=== PATIENT | male | born 1940 | race Caucasian/White ===

== ENCOUNTER 2019-01-14 08:44 | Emergency (ER) | payer MEDICARE, OTHER, SELFPAY ==
[2019-01-14 08:47] VITALS: BP 174/104; PULSE 68; RESP 22; TEMP 35.8; O2SAT 94; BMI 32.0
--- NOTE | 2019-01-14 08:50 | ED.EPISTAXIS ---
HPI - Epistaxis General Chief complaint: Nasal Problem Stated complaint: Nose bleed for about an hr. Time Seen by Provider: 01/14/19 08:50 Source: patient Mode of arrival: ambulatory Limitations: no limitations History of Present Illness HPI Narrative: Patient is a 78-year-old male who presents with epistaxis from the left side is ongoing for last hour and a half. He says he thinks he got it to stop on the way over here. He says that he swallowed a lot of blood coughed up some blood clots. He has pinching his nose now the overall seems like the bleeding has stopped. Speaking without any difficulty it is not running down his throat. He does take aspirin daily. MD complaint: epistaxis Location: left nostril Context: history of previous and aspirin use Treatment prior to arrival: nose pinching Related Data Allergies Allergy/AdvReac Type Severity Reaction Status Date / Time No Known Drug Allergies Allergy Verified 01/14/19 09:07 Review of Systems Review of Systems GENERAL: Denies chills,fever HEENT: See HPI RESPIRATORY: Denies dyspnea, cough, wheezing CARDIOVASCULAR: Denies chest pain, palpitations GASTROINTESTINAL: Denies nausea, vomiting MUSCULOSKELETAL: Denies extremity pain, injury SKIN: No rash, no laceration, no pruritus NEUROLOGIC: Denies weakness, dizziness, headache, numbness 8 point review of systems is negative except for those stated above and HPI [facility] Medical History Hyperlipidemia (Acute) Hypertension (Acute) Hypothyroid (Acute) Social History Smoking Status: Never smoker Social History Smoking Status: Never smoker Exam Initial Vital Signs Initial Vital Signs: Vital Signs Temperature 96.5 F L 01/14/19 08:47 Pulse Rate 68 01/14/19 08:47 Respiratory Rate 22 01/14/19 08:47 Blood Pressure 174/104 H 01/14/19 08:47 Pulse Oximetry 94 01/14/19 08:47 GENERAL: Well-appearing, well-nourished and in no acute distress. HEENT: Head atraumatic,EOMI, pupils reactive, face symmetric, moist mucous membranes NOSE: No active bleeding seen in the left naris. Blood clot noted PHARYNX: No blood in it. CARDIOVASCULAR: Regular rate and rhythm without murmurs, rubs or gallops. RESPIRATORY: Breath sounds equal bilaterally, no wheezes rales or rhonchi. ABDOMEN: Soft, nontender. Normoactive bowel sounds all 4 quadrants. No guarding or rebound. EXTREMITIES: Normal range of motion, no clubbing or edema. Neurovascularly intact NEUROLOGICAL: Alert and oriented x4.Normal gait and speech. SKIN: Warm, dry, no laceration, no petechiae, no rashes or lesions. Course Vital Signs - 8 hr 01/14/19 08:47 01/14/19 09:26 Temperature 96.5 F L Pulse Rate 68 60 Respiratory Rate 22 18 Blood Pressure 174/104 H Blood Pressure [Left Arm] 133/80 Pulse Oximetry 94 96 MDM - Epistaxis MDM Narrative Medical decision making narrative: Bleeding basically stopped prior to arrival. Nasal clamp was placed and left on for about 20 more minutes. Bleeding completely stopped. Patient never had any airway compromise no dripping of blood. Education had a use clamping when to return to the ED. Patient states he takes aspirin every other day he is going to return to that he thinks he has extra sensitive to it. Discharge Plan Departure Patient Disposition: Home Clinical Impression: Epistaxis Instructions: DI for Nosebleed Activity Restrictions/Additional Instructions: *You have been diagnosed with epistaxis *What to do: Recommend humidifier, use a nose clamp in tilted forward if bleeding should reoccur *Continue to take medications as directed *Follow up with your primary care provider in 2-3 days *Return to ER if you should have persistent nose bleed on going for more than 60 minutes despite clamping, significant blood in her or any new, worsening or concerning symptoms
[2019-01-14 09:26] VITALS: BP 133/80; PULSE 60; RESP 18; O2SAT 96
== END 2019-01-14 09:38 | disposition home or self-care (01) ==
PROVIDERS: Emergency Provider Emergency Medicine
DX: R04.0 Epistaxis (principal)
CPT/HCPCS: 99282; 99283

== ENCOUNTER 2022-01-04 08:05 | Emergency (ER) | payer MEDICARE, OTHER, SELFPAY ==
[2022-01-04 08:21] VITALS: BP 172/83; PULSE 68; RESP 18; TEMP 37.1; O2SAT 98; BMI 31.9
[2022-01-04 08:30] VITALS: BP 165/88; PULSE 72; RESP 16; O2SAT 98
--- NOTE | 2022-01-04 08:56 | ED_ITS ---
HPI - Skin/Abscess/Foreign Bdy General Chief complaint: Skin/Abscess/Foreign Body Stated complaint: swelling on anal area,growing last 2 days Time Seen by Provider: 01/04/22 08:56 Source: patient Mode of arrival: Family Vehicle Limitations: no limitations History of Present Illness HPI narrative: This is a pleasant 81-year-old male who comes emergency department for complaint of swelling in the anal area which is becoming increasingly larger over the past 2 days mildly tender. He has noticed a small amount of blood with stools. He states he has typically a small amount of fecal incontinence. He will often stuff some toilet paper up into the anal area has noted it is dry when it should be moist. He thinks that may have irritated the area and he has developed this swelling. He denies any active pus or other types of drainage. No bright red blood recently. He denies fevers or chills. No abdominal pain. He does not have hard stools normally. No other GI or urinary symptoms appreciated. Surrounding area is not tender. Patient does have a history of gout and is on medication for this. Related Data Previous Rx's Medication Instructions Recorded hydrocortisone 1 %-pramoxine 1 % 1 applic PA QID PRN #10 g 01/04/22 rectal foam (Proctofoam HC) Allergies Allergy/AdvReac Type Severity Reaction Status Date / Time No Known Drug Allergies Allergy Verified 01/04/22 08:29 Review of Systems Review of Systems ROS Unobtainable: All systems reviewed & are unremarkable except as noted in HPI and below Patient History Medical History (Updated 01/04/22 @ 09:14 by Amanda Shin DO) Hyperlipidemia Hypertension Hypothyroid Social History Smoking Status: Never smoker Smoking Status: Never smoker alcohol intake frequency: a few times a week Substance Use Type: does not use Exam Narrative Exam Narrative: GENERAL: Alert and oriented x three, male in mild distress. HEENT: Head normocephalic, atraumatic, EOMI, pupils reactive, face symmetric, moist mucous membranes NECK: Supple, full range of motion CARDIOVASCULAR: Regular rate and rhythm without murmurs, rubs or gallops. RESPIRATORY: Breath sounds equal bilaterally, no wheezes rales or rhonchi. ABDOMEN: Soft, nontender. Normoactive bowel sounds all 4 quadrants. No guarding or rebound, rigidity, no mass. On her rectal exam patient has a large hemorrhoid that is approximately 2 cm in size, soft, only very mildly tender. On digital rectal exam there is no bright red blood or other hemorrhoids or masses noted. Patient tolerates this procedure well with minimal discomfort. : No CVA tenderness EXTREMITIES: Normal range of motion, no clubbing or edema. Neurovascularly intact NEUROLOGICAL: Cranial nerves II through XII grossly intact. Moving all extremities SKIN: Warm, dry, no petechiae, no rashes or lesions. Initial Vital Signs Initial Vital Signs: Vital Signs Temperature 98.8 F 01/04/22 08:21 Pulse Rate 68 01/04/22 08:21 Respiratory Rate 18 01/04/22 08:21 Blood Pressure 172/83 H 01/04/22 08:21 Pulse Oximetry 98 01/04/22 08:21 Course Vital Signs Vital signs: Vital Signs - 8 hr 01/04/22 08:21 Temperature 98.8 F Pulse Rate 68 Respiratory Rate 18 Blood Pressure 172/83 H Pulse Oximetry 98 MDM - Skin/Abscess/Foreign Bdy MDM Narrative Medical decision making narrative: This is an 81-year-old male with a moderate-sized soft non thrombosed external hemorrhoid. Patient likely has irritated the area with some some mild fecal incontinence and placing toilet paper up into the rectal area. It is soft, only very mildly tender on exam. Conservative measures, Proctofoam patient was given referral to continues to grow as well as return precautions. All questions answered. Return precautions discussed. Discharge Plan Departure Patient Disposition: Home Clinical Impression: Hemorrhoid Instructions: DI for Hemorrhoids Activity Restrictions/Additional Instructions: Follow-up you continue to have persistent symptoms. If your hemorrhoid is becoming increasingly enlarged or painful but is not hard or clotted you can follow-up with general surgery for banding or surgical treatment. Use Proctofoam, apply to the area of hemorrhoid as directed. I also recommend Sitz baths, or hot compresses to the affected area 2-3 times daily If you are constipated a stool softener is appropriate. If you are having small amounts of fecal incontinence can use a pad, there even specialized pads designed specifically for this available over the counter or the Internet. Prescription sent to [facility] in [place]. If you develop bright red bleeding which is brisk or your unable to stop it return for repeat evaluation, if it becomes very hard and painful, there seems to be spreading redness or increasing pain that is uncontrolled at home or other new or concerning symptoms. Prescriptions: New Proctofoam HC 1-1 % foam 1 applic PA QID PRN (Reason: hemorrhoids) Qty: 10 0RF Referrals: Dale Langley MD [Physician] -
[2022-01-04 09:00] VITALS: PULSE 78; O2SAT 96
== END 2022-01-04 09:29 | disposition home or self-care (01) ==
PROVIDERS: Emergency Provider Emergency Medicine
DX: K64.4 Residual hemorrhoidal skin tags (principal)
CPT/HCPCS: 99281